=== PATIENT | male | born 1955 | race Caucasian/White ===

== ENCOUNTER → 2019-10-27 | Day surgery (SDC) | payer BC, OTHER ==
[2019-10-22 11:29] LABS: BASOPHILS # (AUTO) 0.1 (0.0-0.1); BASOPHILS % 0.9 % (0.0-1.0); EOSINOPHILS # (AUTO) 0.2 (0.0-0.4); EOSINOPHILS % 2.9 % (0.0-6.0); HEMOGLOBIN 13.7 g/dL (14.0-18.0); LYMPHOCYTES # (AUTO) 1.3 (1.0-3.2); LYMPHOCYTES % 22.7 % (18.0-39.1); MEAN CORPUSCULAR HEMOGLOBIN 29.5 pg (28-32); MEAN CORPUSCULAR HGB CONC 32.6 g/dL (31-35); MEAN CORPUSCULAR VOLUME 90.3 fL (81-99); MONOCYTES # (AUTO) 0.4 (0.2-0.8); MONOCYTES % 6.9 % (4.4-11.3); NEUTROPHILS # (AUTO) 3.7 (2.1-6.9); NEUTROPHILS % 66.4 % (38.7-80.0); PLATELET COUNT 187 x10e3/uL (140-360); RED BLOOD COUNT 4.65 x10e6/uL (4.3-5.7); RED CELL DISTRIBUTION WIDTH 13.1 % (11.7-14.4)
--- NOTE | 2019-10-22 11:47 | Diagnostic Imaging Report ---
EXAMINATION: CHEST 2 VIEWS INDICATION: Pre-operative COMPARISON: None FINDINGS: LINES/TUBES:None LUNGS:The lungs are hyperinflated. Biapical pleural parenchymal thickening/scarring. No focal consolidation or pulmonary edema. PLEURA:No pleural effusion or pneumothorax. MEDIASTINUM:The cardiomediastinal silhouette appears normal in size and shape. BONES/SOFT TISSUES:No acute osseous injury. ABDOMEN:No free air under the diaphragm. IMPRESSION: Hyperinflated lungs. No focal pneumonia or pulmonary edema. Signed by: Ale Thompson MD on 10/22/2019 11:44 AM
[~2019-10-27] MED LIST: ACETAMINOPHEN/CODEINE 300MG - 30MG TAB ONE; ASPIR 8181 MG PO; ATORVASTATIN CA10 MG PO; BIOFLEX TABLET1 EACH PO; BUPIVACAINE 0.25% 30ML SDV INJ ONE; CALCET TABLET1 EACH PO; CEFAZOLIN SOD 1 GM/NS 50ML 100 ML IV ONE; CENTRUM SILVER1 EAC3 PO; CLARITIN-D 241 EACH PO; LOSARTAN POTAS100 MG PO; OCCUVITE PO
[2019-10-27 10:35] VITALS: BP 115/80
--- NOTE | 2019-10-27 11:31 | Operative Report ---
DATE OF PROCEDURE: 10/27/2019 SURGEON: Abelardo Plummer MD PREOPERATIVE DIAGNOSIS: Right-sided inguinal hernia. POSTOPERATIVE DIAGNOSIS: Right-sided inguinal hernia. PREOPERATIVE INDICATION: Treat disease, prevent hernia related complications. PROCEDURE: Open repair of right inguinal hernia. ANESTHESIA: General. JURY CONSULTANT: , surgical corsetier (needed due to complexity of case). FLUIDS: 1 L of crystalloid. ESTIMATED BLOOD LOSS: 5 mL. DRAINS: None. COMPLICATIONS: None. SPECIMENS: None. GRAFTS: Large polypropylene plug. FINDINGS: Large indirect inguinal hernia, no signs of indirect inguinal hernia. PROCEDURE IN DETAIL: The patient was brought to the operating room and was put under general anesthesia with the laryngeal mask airway. He was sterilely prepped and draped in the usual fashion. A Blanco catheter was placed to decompress the bladder. A preprocedure pause was performed identifying the patient, use of perioperative antibiotics, intended procedure, and staff surgeon. A right iliac fossa incision was made along the lines of Langerhans and dissection was carried to Shmuel's fascia down to the level of the external oblique aponeurosis and external oblique aponeurotic incision was made along the length of its fibers. The tissues were elevated in order to prevent any neurovascular injury. I then, mobilized the cord structures with a [place] drain and I then identified a large indirect inguinal hernia through the direct space, this was circumferentially dissected and freed from the cord structures and reduced. I then, placed a large polypropylene plug mesh through this defect and secured this to the conjoint tendon as well as through the edge of the inguinal ligament using 2-0 Prolene suture in interrupted fashion, this repaired the hernia quite well. I was not able to identify any signs of an indirect inguinal hernia. Next, I closed the external oblique aponeurosis with 2-0 Vicryl suture in a continuous fashion. The Shmuel's fascia was reapproximated with 3-0 Vicryl suture in interrupted fashion, 4-0 Monocryl suture was used in a subcuticular fashion for skin closure. Dermabond dressings were applied. A 30 mL of 0.25% bupivacaine was used at the incision sites for local anesthesia. The patient tolerated the procedure well. Type of wound was type 1, clean. MD CARMEN Yu/HIRAM /[id number]
== END | disposition home or self-care (01) ==
LOC: OR 05:25
PROVIDERS: ATTEND Surgery
DX: K40.90 Unilateral inguinal hernia, without obstruction or gangrene, not specified as recurrent (principal); G47.33 Obstructive sleep apnea (adult) (pediatric); M54.2 Cervicalgia; M25.519 Pain in unspecified shoulder; M19.90 Unspecified osteoarthritis, unspecified site; H04.129 Dry eye syndrome of unspecified lacrimal gland; I10 Essential (primary) hypertension; K75.9 Inflammatory liver disease, unspecified; R00.1 Bradycardia, unspecified; Z01.810 Encounter for preprocedural cardiovascular examination; Z01.812 Encounter for preprocedural laboratory examination; Z01.818 Encounter for other preprocedural examination; Z11.59 Encounter for screening for other viral diseases; Z79.82 Long term (current) use of aspirin
CPT/HCPCS: 36415; 49505; 71046; 85025; 87635; 93005; J0690